=== PATIENT | female | born 1930 | race Caucasian/White ===

== ENCOUNTER 2016-12-06 23:57 | Inpatient (IN) | payer OTHER ==
[~2016-12-06] VITALS: Ht 149.9 cm; Wt 52.3 kg
[~2016-12-06 23:57] MED LIST: ACTONEL35 MG PO; ALTOPREV20 MG PO; AMOX TR-K CLV1 EAC4 PO; ASPIR-LOW81 MG PO; ATORVASTATIN CA40 MG PO; CALCIUM 600 +1 EAC9 PO; CLORPRES 0.1-11 EACH PO; LEVAQUIN500 MG PO; LISINOPRIL-HCT1 EACH PO; LISINOPRIL2.5 MG PO; LOPRESSOR25 MG PO; MULTIPLE VITAM1 EACH PO; NON-ASPIRIN EX500 MG PO; OS-CAL 500+D T1 EAC1 PO; PREDNISONE20 MG PO; TRAMADOL HCL50 MG PO; VITAMIN C1000 MG PO; VITAMIN D2000 UNIT PO
[2016-12-07 01:25] LABS: HEMATOCRIT 41.5 % (36.0-46.0); MCH 30.8 PG (29.0-34.0); MCHC 32.8 G/DL (30.0-36.0); MCV 93.9 FL (83-99); MEAN PLAT.VOLUME 10.1 uM^3 (9.5-12.4); PLATELET COUNT 231 K/uL (156-360); RBC DIS.WIDTH-CV 13.1 % (11.8-14.6); RBC DIS.WIDTH-SD 45.1 % (39-53); RED BLOOD COUNT 4.42 M/uL (3.80-5.20); WHITE BLOOD COUNT 7.5 K/uL (4.1-10.2)
[2016-12-07 01:35] LABS: CHLORIDE 106 mEq/L (99-109); POTASSIUM 3.4 mEq/L (3.7-5.4); SODIUM 142 mEq/L (136-147)
[2016-12-07 01:38] LABS: GLUCOSE 109 mg/dL (70-99)
[2016-12-07 01:39] LABS: ANION GAP 11 MEQ/L (2-14)
[2016-12-07 01:40] LABS: TOTAL BILIRUBIN 0.5 mg/dL (0.0-1.0)
[2016-12-07 01:41] LABS: ALKALINE PHOSPHATASE 64 IU/L (3-129); GFR ESTIMATE (CALCULATED) > 59 mL/min/
[2016-12-07 01:42] LABS: UREA NITROGEN (BUN) 12 mg/dL (9-23)
[2016-12-07 03:00] LABS: ADD MIUA? YES; BILIRUBIN NEGATIVE; BLOOD NEGATIVE; COLOR YELLOW ((YELLOW)); GLUCOSE (STRIP) NEGATIVE; KETONES NEGATIVE; LEUKOCYTES TRACE; NITRITE NEGATIVE; PROTEIN (STRIP) NEGATIVE; SPECIFIC GRAVITY 1.016 (1.000-1.030)
[2016-12-07 03:03] LABS: BACTERIA NONE SEEN /HPF; EPITHELIAL CELLS NONE SEEN /HPF; MUCUS TRACE /LPF; RED BLOOD CELLS 0-5 /HPF (0-5); UCUL ADDED? NO; WHITE BLOOD CELLS 0-5 /HPF (0-5)
[2016-12-07 10:31] LABS: TROP-I INTERPRETATION NEGATIVE; TROPONIN-I 0.02 ng/mL (0.0-0.30)
[2016-12-07 12:20] VITALS: BP 178/92
[2016-12-07 12:22] VITALS: BP 178/92
[2016-12-07 16:49] VITALS: BP 132/61
[2016-12-07 18:15] LABS: TROP-I INTERPRETATION NEGATIVE; TROPONIN-I 0.02 ng/mL (0.0-0.30)
[2016-12-07 20:30] VITALS: BP 162/74
[2016-12-07] MEDS ORDERED: ASPIRIN81 M2 PO (20:32)
[2016-12-07] MEDS ORDERED: AMLODIPINE BESYL5 MG PO (20:38)
[2016-12-07] MEDS ORDERED: PRESERVISION T1 EACH PO (20:40)
[2016-12-07] MEDS ORDERED: E-CREAM57 GM TP (20:40)
[2016-12-07] MEDS ORDERED: VITAMIN B COMP1 EACH PO (20:41)
[2016-12-07] MEDS ORDERED: THERA TEARS30 ML BOTH EYES (20:44)
[2016-12-07] MEDS ORDERED: MECLIZINE HCL25 MG PO (20:44)
[2016-12-08] VITALS (7 sets, daily range): BP systolic 128–164; BP diastolic 67–75
[2016-12-08 05:33] LABS: EOSINOPHIL (%) 0.2 % (0-5); HEMATOCRIT 37.2 % (36.0-46.0); IMMATURE GRANULOCYTE (%) 0.4 % (0.0-0.7); INSTRUMENT ABS NEUTROPHIL CT 7.4 K/uL; MCHC 33.3 G/DL (30.0-36.0); MCV 95.9 FL (83-99); MEAN PLAT.VOLUME 10.4 uM^3 (9.5-12.4); MONOCYTE (%) 11.6 % (3-12); MONOCYTE COUNT 1.1 K/uL (0-0.8); NEUTROPHIL (%) 77.4 % (45-76); NEUTROPHIL COUNT 7.4 K/uL (1.8-6.4); PLATELET COUNT 203 K/uL (156-360); RBC DIS.WIDTH-CV 13.4 % (11.8-14.6); RBC DIS.WIDTH-SD 47.4 % (39-53); RED BLOOD COUNT 3.88 M/uL (3.80-5.20); WHITE BLOOD COUNT 9.6 K/uL (4.1-10.2)
[2016-12-08 05:50] LABS: ALKALINE PHOSPHATASE 41 IU/L (3-129); ANION GAP 6 MEQ/L (2-14); CHLORIDE 103 MEQ/L (99-109); GFR ESTIMATE (CALCULATED) > 59 mL/min/; GLUCOSE 129 mg/dL (70-99); MAGNESIUM 1.5 mg/dl (1.3-2.7); POTASSIUM 3.8 MEQ/L (3.7-5.4); SAMPLE HEMOLYSIS CHECK 0; SAMPLE ICTERIC CHECK 0; SAMPLE LIPEMIA CHECK 0; SODIUM 137 MEQ/L (136-147); TOTAL BILIRUBIN 1.1 MG/DL (0.0-1.0); UREA NITROGEN (BUN) 9 mg/dL (9-23)
[2016-12-08 11:06] LABS: DIRECT BILIRUBIN 0.2 mg/dL (0.0-0.3)
[2016-12-09 02:57] VITALS: BP 160/76
[2016-12-09 05:36] LABS: EOSINOPHIL (%) 0.6 % (0-5); EOSINOPHIL COUNT 0.1 K/uL (0-0.3); HEMATOCRIT 37.5 % (36.0-46.0); IMMATURE GRANULOCYTE (%) 0.2 % (0.0-0.7); INSTRUMENT ABS NEUTROPHIL CT 7.3 K/uL; MCH 30.5 PG (29.0-34.0); MCV 95.2 FL (83-99); MEAN PLAT.VOLUME 10.7 uM^3 (9.5-12.4); MONOCYTE COUNT 1.5 K/uL (0-0.8); NEUTROPHIL (%) 73.7 % (45-76); NEUTROPHIL COUNT 7.3 K/uL (1.8-6.4); PLATELET COUNT 170 K/uL (156-360); RBC DIS.WIDTH-CV 13.2 % (11.8-14.6); RBC DIS.WIDTH-SD 46.6 % (39-53); RED BLOOD COUNT 3.94 M/uL (3.80-5.20); WHITE BLOOD COUNT 9.9 K/uL (4.1-10.2)
[2016-12-09 06:33] LABS: ANION GAP 7 MEQ/L (2-14); CHLORIDE 104 MEQ/L (99-109); GFR ESTIMATE (CALCULATED) > 59 mL/min/; GLUCOSE 99 mg/dL (70-99); MAGNESIUM 1.6 mg/dl (1.3-2.7); SAMPLE HEMOLYSIS CHECK 0; SAMPLE ICTERIC CHECK 0; SAMPLE LIPEMIA CHECK 0; SODIUM 139 MEQ/L (136-147); UREA NITROGEN (BUN) 10 mg/dL (9-23)
[2016-12-09 08:18] VITALS: BP 127/62
[2016-12-09 11:03] VITALS: BP 139/68
[2016-12-09 17:18] VITALS: BP 131/62
[2016-12-09 20:12] VITALS: BP 125/68
[2016-12-09 23:40] VITALS: BP 148/70
[2016-12-10 04:03] VITALS: BP 134/60
[2016-12-10 08:25] VITALS: BP 153/85
[2016-12-10 11:41] VITALS: BP 142/73
== END 2016-12-10 13:57 | disposition home or self-care (01) | DRG 352 ==
LOC: EME 23:57 → SDC 12-07 06:07 → 2SOUTH 12-07 09:32 → 4EAST 12-07 09:32 → ENRESERV 12-07 09:33 → 4EAST 12-07 11:55 → ENRESERV 12-09 14:31 → 3EAST 12-09 17:13
PROVIDERS: Physician Assistant; Surgery
DX: K43.6 Other and unspecified ventral hernia with obstruction, without gangrene (principal); K40.90 Unilateral inguinal hernia, without obstruction or gangrene, not specified as recurrent; K44.9 Diaphragmatic hernia without obstruction or gangrene; I10 Essential (primary) hypertension; M81.0 Age-related osteoporosis without current pathological fracture; M40.209 Unspecified kyphosis, site unspecified; H35.30 Unspecified macular degeneration; J44.9 Chronic obstructive pulmonary disease, unspecified; Z79.82 Long term (current) use of aspirin; Z88.2 Allergy status to sulfonamides; Z88.1 Allergy status to other antibiotic agents; I25.2 Old myocardial infarction; Z87.891 Personal history of nicotine dependence
CPT/HCPCS: 71010; 74177; 80048; 80053; 81003; 82248; 83735; 84100; 84484; 85025; 85027; 93005; 94640; 94667; 94668; 94799; 97530 GO; 97530 GP; 99202; 99281; 99285; C1781; J0330; J1170; J1335; J1650; J2270; J2405; J2710; J3010; J7040

== ENCOUNTER 2017-04-02 13:37 | Emergency (ER) | payer OTHER ==
[~2017-04-02] VITALS: Ht 149.9 cm; Wt 36.2 kg
[~2017-04-02 13:37] MED LIST changes: +AMLODIPINE BESYL5 MG PO; +ASPIRIN81 M2 PO; +E-CREAM57 GM TP; +MECLIZINE HCL25 MG PO; +PRESERVISION T1 EACH PO; +THERA TEARS30 ML BOTH EYES; +VITAMIN B COMP1 EACH PO
[2017-04-02 15:00] LABS: BASOPHIL (%) 0.1 % (0-1); EOSINOPHIL (%) 0 % (0-5); HEMATOCRIT 39.5 % (36.0-46.0); HEMOGLOBIN 13.2 G/DL (11.9-15.5); IMMATURE GRANULOCYTE (%) 0.7 % (0.0-0.7); LYMPHOCYTE (%) 3.5 % (15-42); LYMPHOCYTE COUNT 0.5 K/uL (1.0-2.8); MCH 31.2 PG (29.0-34.0); MCHC 33.4 G/DL (30.0-36.0); MCV 93.4 FL (83-99); MONOCYTE (%) 9.6 % (3-12); MONOCYTE COUNT 1.3 K/uL (0-0.8); NEUTROPHIL (%) 86.1 % (45-76); NEUTROPHIL COUNT 11.9 K/uL (1.8-6.4); PLATELET COUNT 189 K/uL (156-360); RBC DIS.WIDTH-CV 13.3 % (11.8-14.6); RBC DIS.WIDTH-SD 44.9 % (39-53); RED BLOOD COUNT 4.23 M/uL (3.80-5.20); WHITE BLOOD COUNT 13.9 K/uL (4.1-10.2)
[2017-04-02 15:47] LABS: CHLORIDE 102 MEQ/L (99-109); POTASSIUM 3.8 MEQ/L (3.7-5.4); SODIUM 136 MEQ/L (136-147)
[2017-04-02 15:52] LABS: CREATININE 0.5 MG/DL (0.6-1.3); GFR ESTIMATE (CALCULATED) > 59 mL/min/; GLUCOSE 148 mg/dL (70-99); UREA NITROGEN (BUN) 25 mg/dL (9-23)
[2017-04-02] MEDS ORDERED: TYLENOL WITH C1 EACH PO (17:51)
[2017-04-02 19:17] VITALS: BP 136/90
== END 2017-04-02 19:18 | disposition home or self-care (01) ==
LOC: EME 13:37
PROVIDERS: Emergency Medicine
DX: S42.411A Displaced simple supracondylar fracture without intercondylar fracture of right humerus, initial encounter for closed fracture (principal); S22.31XA Fracture of one rib, right side, initial encounter for closed fracture; W18.30XA Fall on same level, unspecified, initial encounter; Y93.E1 Activity, personal bathing and showering; Y92.002 Bathroom of unspecified non-institutional (private) residence as the place of occurrence of the external cause; Z23 Encounter for immunization; S80.212A Abrasion, left knee, initial encounter; S80.211A Abrasion, right knee, initial encounter; M81.0 Age-related osteoporosis without current pathological fracture; I10 Essential (primary) hypertension; I25.2 Old myocardial infarction; Z79.82 Long term (current) use of aspirin; J44.9 Chronic obstructive pulmonary disease, unspecified; Z88.2 Allergy status to sulfonamides; Z88.1 Allergy status to other antibiotic agents
CPT/HCPCS: 71101; 73090; 73521; 73564; 73590; 73630; 80048; 85025; 99281; 99284; J2405; J3010

== ENCOUNTER 2017-04-18 17:30 | Inpatient (IN) | payer OTHER ==
[~2017-04-18] VITALS: Ht 144.8 cm; Wt 50.0 kg
[~2017-04-18 17:30] MED LIST changes: +NATURE'S TEARS15 M1 BOTH EYES; -THERA TEARS30 ML BOTH EYES; +TYLENOL WITH C1 EACH PO
[2017-04-18 19:43] LABS: BASOPHIL (%) 0.3 % (0-1); BASOPHIL COUNT 0.1 K/uL (0-0.1); EOSINOPHIL (%) 0.2 % (0-5); HEMATOCRIT 40.5 % (36.0-46.0); HEMOGLOBIN 13.2 G/DL (11.9-15.5); IMMATURE GRANULOCYTE (%) 0.8 % (0.0-0.7); LYMPHOCYTE (%) 5.1 % (15-42); LYMPHOCYTE COUNT 0.9 K/uL (1.0-2.8); MCH 30.9 PG (29.0-34.0); MCHC 32.6 G/DL (30.0-36.0); MCV 94.8 FL (83-99); MONOCYTE (%) 11.9 % (3-12); MONOCYTE COUNT 2.2 K/uL (0-0.8); NEUTROPHIL (%) 81.7 % (45-76); NEUTROPHIL COUNT 14.8 K/uL (1.8-6.4); RBC DIS.WIDTH-CV 13.9 % (11.8-14.6); RBC DIS.WIDTH-SD 47.8 % (39-53); RED BLOOD COUNT 4.27 M/uL (3.80-5.20); WHITE BLOOD COUNT 18.1 K/uL (4.1-10.2)
[2017-04-18 19:46] LABS: CARBON DIOXIDE (BICARBONATE) 30.5 MEQ/L (20-31)
[2017-04-18 19:49] LABS: PLATELET COUNT 358 K/uL (156-360)
[2017-04-18 19:51] LABS: INTER. NORMALIZED RATIO 1.1
[2017-04-18 19:53] LABS: CHLORIDE 104 mEq/L (99-109); POTASSIUM 4.3 mEq/L (3.7-5.4); SODIUM 138 mEq/L (136-147)
[2017-04-18 19:55] LABS: GLUCOSE 130 mg/dL (70-99)
[2017-04-18] MEDS ORDERED: LOPRESSOR25 MG PO (19:57)
[2017-04-18] MEDS ORDERED: COLACE100 MG PO (19:57)
[2017-04-18] MEDS ORDERED: NATURAL LUTEIN20 MG PO (19:58)
[2017-04-18 19:59] LABS: CREATININE 0.6 mg/dL (0.6-1.3); GFR ESTIMATE (CALCULATED) > 59 mL/min/; UREA NITROGEN (BUN) 26 mg/dL (9-23)
[2017-04-18 20:01] LABS: CREATINE KINASE 40 IU/L (1-294)
[2017-04-18 20:04] LABS: TROP-I INTERPRETATION NEGATIVE; TROPONIN-I < 0.01 ng/mL (0.0-0.30)
[2017-04-18 23:41] VITALS: BP 131/63
[2017-04-19] VITALS (7 sets, daily range): BP systolic 116–142; BP diastolic 57–71
[2017-04-19 05:38] LABS: APPEARANCE SL.HAZY ((CLEAR)); BILIRUBIN NEGATIVE; BLOOD NEGATIVE; COLOR AMBER ((YELLOW)); GLUCOSE (STRIP) NEGATIVE; KETONES NEGATIVE; LEUKOCYTES TRACE; NITRITE NEGATIVE; PROTEIN (STRIP) NEGATIVE; SPECIFIC GRAVITY 1.029 (1.000-1.030)
[2017-04-19 05:42] LABS: BACTERIA RARE /HPF; EPITHELIAL CELLS RARE /HPF; MUCUS 1+ /LPF; UCUL ADDED? YES
[2017-04-19 06:03] LABS: HEMATOCRIT 37.7 % (36.0-46.0); MCH 30.9 PG (29.0-34.0); MCHC 31.8 G/DL (30.0-36.0); MCV 97.2 FL (83-99); PLATELET COUNT 305 K/uL (156-360); RBC DIS.WIDTH-CV 14.1 % (11.8-14.6); RED BLOOD COUNT 3.88 M/uL (3.80-5.20); WHITE BLOOD COUNT 14.8 K/uL (4.1-10.2)
[2017-04-19 06:37] LABS: ALBUMIN 2.8 G/DL (3.2-4.8); ALKALINE PHOSPHATASE 174 IU/L (3-129); ALT (GPT) 12 IU/L (3-49); AST (GOT) 16 IU/L (2-34); CHLORIDE 108 MEQ/L (99-109); CREATININE 0.5 MG/DL (0.6-1.3); GFR ESTIMATE (CALCULATED) > 59 mL/min/; GLUCOSE 114 mg/dL (70-99); POTASSIUM 4.2 MEQ/L (3.7-5.4); SODIUM 141 MEQ/L (136-147); TOTAL BILIRUBIN 0.9 MG/DL (0.0-1.0); TOTAL PROTEIN 5.3 G/DL (6.4-8.3); UREA NITROGEN (BUN) 25 mg/dL (9-23)
[2017-04-19 17:57] LABS: BICARBONATE 24.3 mEq/L (22-26); CARBOXY HGB 2.5 % (0-5); METHEMOGLOBIN 1.6 % (0-1.5); PCO2 42 mm Hg (35-45); PO2 206 mm Hg (80-100); SITE LB; pH 7.37 (7.35-7.45)
[2017-04-19 17:58] LABS: DEVICE NRBM; FI02 100 %; O2 FLOW 15 L/MIN; TOTAL RESP RATE 22 resp/min
[2017-04-19 18:44] LABS: TROP-I INTERPRETATION NEGATIVE; TROPONIN-I < 0.01 ng/mL (0.0-0.30)
[2017-04-20 05:20] VITALS: BP 113/55
[2017-04-20 06:10] LABS: BASOPHIL (%) 0.3 % (0-1); EOSINOPHIL (%) 1.4 % (0-5); EOSINOPHIL COUNT 0.2 K/uL (0-0.3); HEMATOCRIT 33.1 % (36.0-46.0); HEMOGLOBIN 10.5 G/DL (11.9-15.5); IMMATURE GRANULOCYTE (%) 0.6 % (0.0-0.7); LYMPHOCYTE (%) 9.3 % (15-42); LYMPHOCYTE COUNT 1.1 K/uL (1.0-2.8); MCH 29.9 PG (29.0-34.0); MCHC 31.7 G/DL (30.0-36.0); MCV 94.3 FL (83-99); MONOCYTE COUNT 1.6 K/uL (0-0.8); NEUTROPHIL (%) 74.4 % (45-76); NEUTROPHIL COUNT 8.8 K/uL (1.8-6.4); PLATELET COUNT 288 K/uL (156-360); RBC DIS.WIDTH-CV 13.7 % (11.8-14.6); RBC DIS.WIDTH-SD 46.8 % (39-53); RED BLOOD COUNT 3.51 M/uL (3.80-5.20); WHITE BLOOD COUNT 11.8 K/uL (4.1-10.2)
[2017-04-20 06:40] LABS: ALBUMIN 2.4 G/DL (3.2-4.8); ALKALINE PHOSPHATASE 132 IU/L (3-129); ALT (GPT) 10 IU/L (3-49); AST (GOT) 15 IU/L (2-34); CHLORIDE 106 MEQ/L (99-109); CREATININE 0.5 MG/DL (0.6-1.3); GFR ESTIMATE (CALCULATED) > 59 mL/min/; GLUCOSE 99 mg/dL (70-99); SODIUM 142 MEQ/L (136-147); TOTAL PROTEIN 4.8 G/DL (6.4-8.3); UREA NITROGEN (BUN) 19 mg/dL (9-23)
[2017-04-20 06:41] LABS: POTASSIUM 3.3 MEQ/L (3.7-5.4); TOTAL BILIRUBIN 0.7 MG/DL (0.0-1.0)
[2017-04-20 07:24] VITALS: BP 112/59
[2017-04-20 11:16] VITALS: BP 140/64
[2017-04-20 15:40] VITALS: BP 116/62
[2017-04-20 19:33] VITALS: BP 119/58
[2017-04-20 23:33] VITALS: BP 107/57
[2017-04-21 03:42] VITALS: BP 112/57
[2017-04-21 04:39] LABS: BASOPHIL (%) 0.3 % (0-1); EOSINOPHIL (%) 1.3 % (0-5); EOSINOPHIL COUNT 0.2 K/uL (0-0.3); HEMATOCRIT 32.4 % (36.0-46.0); HEMOGLOBIN 10.8 G/DL (11.9-15.5); IMMATURE GRANULOCYTE (%) 0.6 % (0.0-0.7); LYMPHOCYTE (%) 6.9 % (15-42); LYMPHOCYTE COUNT 0.9 K/uL (1.0-2.8); MCH 31.3 PG (29.0-34.0); MCHC 33.3 G/DL (30.0-36.0); MCV 93.9 FL (83-99); MONOCYTE (%) 12.9 % (3-12); MONOCYTE COUNT 1.7 K/uL (0-0.8); PLATELET COUNT 303 K/uL (156-360); RBC DIS.WIDTH-CV 13.5 % (11.8-14.6); RBC DIS.WIDTH-SD 46.5 % (39-53); RED BLOOD COUNT 3.45 M/uL (3.80-5.20); WHITE BLOOD COUNT 12.9 K/uL (4.1-10.2)
[2017-04-21 04:52] LABS: ALBUMIN 2.6 g/dL (3.2-4.8)
[2017-04-21 04:53] LABS: CHLORIDE 108 mEq/L (99-109); POTASSIUM 3.6 mEq/L (3.7-5.4); SODIUM 140 mEq/L (136-147)
[2017-04-21 04:55] LABS: GLUCOSE 121 mg/dL (70-99); TOTAL PROTEIN 4.8 g/dL (6.4-8.3)
[2017-04-21 04:57] LABS: TOTAL BILIRUBIN 0.7 mg/dL (0.0-1.0)
[2017-04-21 04:58] LABS: ALKALINE PHOSPHATASE 170 IU/L (3-129)
[2017-04-21 04:59] LABS: CREATININE 0.6 mg/dL (0.6-1.3); GFR ESTIMATE (CALCULATED) > 59 mL/min/
[2017-04-21 05:00] LABS: AST (GOT) 20 IU/L (2-34); UREA NITROGEN (BUN) 22 mg/dL (9-23)
[2017-04-21 05:01] LABS: ALT (GPT) 12 IU/L (3-49)
[2017-04-21 07:59] LABS: MAGNESIUM 1.7 mg/dL (1.3-2.7)
[2017-04-21 08:59] VITALS: BP 113/60
[2017-04-21 12:07] VITALS: BP 150/69
[2017-04-21 15:46] VITALS: BP 128/60
[2017-04-21 19:28] VITALS: BP 113/59
[2017-04-21 23:57] VITALS: BP 134/63
[2017-04-22 04:16] VITALS: BP 116/59
[2017-04-22 05:50] LABS: BASOPHIL (%) 0.5 % (0-1); BASOPHIL COUNT 0.1 K/uL (0-0.1); EOSINOPHIL (%) 2.2 % (0-5); EOSINOPHIL COUNT 0.2 K/uL (0-0.3); HEMATOCRIT 34.4 % (36.0-46.0); IMMATURE GRANULOCYTE (%) 0.6 % (0.0-0.7); LYMPHOCYTE (%) 8.9 % (15-42); MCH 30.8 PG (29.0-34.0); MCV 96.4 FL (83-99); MONOCYTE (%) 13.7 % (3-12); MONOCYTE COUNT 1.5 K/uL (0-0.8); NEUTROPHIL (%) 74.1 % (45-76); PLATELET COUNT 316 K/uL (156-360); RBC DIS.WIDTH-CV 13.6 % (11.8-14.6); RBC DIS.WIDTH-SD 48.4 % (39-53); RED BLOOD COUNT 3.57 M/uL (3.80-5.20); WHITE BLOOD COUNT 10.8 K/uL (4.1-10.2)
[2017-04-22 06:17] LABS: ALBUMIN 2.3 G/DL (3.2-4.8); ALKALINE PHOSPHATASE 128 IU/L (3-129); ALT (GPT) 11 IU/L (3-49); AST (GOT) 19 IU/L (2-34); CHLORIDE 107 MEQ/L (99-109); CREATININE 0.4 MG/DL (0.6-1.3); GFR ESTIMATE (CALCULATED) > 59 mL/min/; GLUCOSE 113 mg/dL (70-99); POTASSIUM 4.1 MEQ/L (3.7-5.4); SODIUM 142 MEQ/L (136-147); TOTAL BILIRUBIN 0.6 MG/DL (0.0-1.0); TOTAL PROTEIN 4.7 G/DL (6.4-8.3); UREA NITROGEN (BUN) 18 mg/dL (9-23)
[2017-04-22 08:37] VITALS: BP 124/61
[2017-04-22 11:37] VITALS: BP 126/65
[2017-04-22 16:30] VITALS: BP 129/61
[2017-04-22 19:39] VITALS: BP 128/57
[2017-04-22 23:49] VITALS: BP 134/65
[2017-04-23] VITALS (7 sets, daily range): BP systolic 112–140; BP diastolic 55–72
[2017-04-24 05:51] VITALS: BP 123/60
[2017-04-24 08:31] VITALS: BP 139/63
[2017-04-24] MEDS ORDERED: SPIRIVA RESPIMAT4 GM IH (10:36)
[2017-04-24] MEDS ORDERED: LOPRESSOR25 MG PO (10:36)
[2017-04-24] MEDS ORDERED: ELIQUIS5 MG PO (10:37)
[2017-04-24] MEDS ORDERED: DULERA 100 MCG/13 GM IH (10:38)
[2017-04-24] MEDS ORDERED: POLYETHYLENE GL17 GM PO (10:38)
[2017-04-24] MEDS ORDERED: SANTYL30 GM TP (10:40)
[2017-04-24] MEDS ORDERED: TRAMADOL HCL50 MG PO ×2 (10:40→10:41)
[2017-04-24 11:36] VITALS: BP 137/82
== END 2017-04-24 14:33 | DRG 299 ==
LOC: EME 17:30 → 3EAST 21:03 → EDOF 21:03 → ENRESERV 21:05 → 3EAST 23:37
PROVIDERS: Emergency Medicine; Hospitalist; Internal Medicine
DX: I82.431 Acute embolism and thrombosis of right popliteal vein (principal); I82.4Z1 Acute embolism and thrombosis of unspecified deep veins of right distal lower extremity; I82.412 Acute embolism and thrombosis of left femoral vein; I82.4Z2 Acute embolism and thrombosis of unspecified deep veins of left distal lower extremity; I26.99 Other pulmonary embolism without acute cor pulmonale; J96.01 Acute respiratory failure with hypoxia; L89.150 Pressure ulcer of sacral region, unstageable; L89.320 Pressure ulcer of left buttock, unstageable; L89.310 Pressure ulcer of right buttock, unstageable; L89.101 Pressure ulcer of unspecified part of back, stage 1; R64 Cachexia; Z68.23 Body mass index [BMI] 23.0-23.9, adult; S42.411D Displaced simple supracondylar fracture without intercondylar fracture of right humerus, subsequent encounter for fracture with routine healing; S39.94XA Unspecified injury of external genitals, initial encounter; X58.XXXA Exposure to other specified factors, initial encounter; D72.829 Elevated white blood cell count, unspecified; Z66 Do not resuscitate; J44.9 Chronic obstructive pulmonary disease, unspecified; I48.91 Unspecified atrial fibrillation; I10 Essential (primary) hypertension; I42.9 Cardiomyopathy, unspecified; R32 Unspecified urinary incontinence; I25.10 Atherosclerotic heart disease of native coronary artery without angina pectoris; M81.0 Age-related osteoporosis without current pathological fracture; F03.90 Unspecified dementia, unspecified severity, without behavioral disturbance, psychotic disturbance, mood disturbance, and anxiety; F17.200 Nicotine dependence, unspecified, uncomplicated; R60.0 Localized edema; I25.2 Old myocardial infarction; Z82.49 Family history of ischemic heart disease and other diseases of the circulatory system; Z98.61 Coronary angioplasty status; Z74.01 Bed confinement status
CPT/HCPCS: 36600; 71045; 71046; 71275; 80048; 80053; 80202; 81003; 82550; 82803; 82948; 83605; 83735; 83880; 84484; 85025; 85027; 85610; 85730; 87040; 87070; 87075; 87086; 87205; 92526 GN; 92610 GN; 93005; 93970; 94010; 94640; 94640 76; 94760; 94799; 97530 GP; 99202; 99281; 99285; A6214; A6260; J1650; J1940; J2543; J3370; J7030; J7050; S0073

== ENCOUNTER 2017-05-06 20:34 | Emergency (ER) | payer OTHER ==
[~2017-05-06] VITALS: Ht 149.9 cm; Wt 56.7 kg
[~2017-05-06 20:34] MED LIST changes: +COLACE100 MG PO; +DULERA 100 MCG/13 GM IH; +ELIQUIS5 MG PO; +NATURAL LUTEIN20 MG PO; +POLYETHYLENE GL17 GM PO; +SANTYL30 GM TP; +SPIRIVA RESPIMAT4 GM IH
[2017-05-06 21:41] LABS: APPEARANCE CLOUDY ((CLEAR)); BILIRUBIN NEGATIVE; BLOOD LARGE; COLOR DK YELLOW ((YELLOW)); GLUCOSE (STRIP) NEGATIVE; KETONES NEGATIVE; LEUKOCYTES NEGATIVE; NITRITE NEGATIVE; PROTEIN (STRIP) 100; SPECIFIC GRAVITY 1.023 (1.000-1.030); UROBILINOGEN 0.2 MG/DL (0.2-1.0)
[2017-05-06 22:05] LABS: HEMATOCRIT 35.9 % (36.0-46.0); HEMOGLOBIN 11.7 G/DL (11.9-15.5); MCH 30.6 PG (29.0-34.0); MCHC 32.6 G/DL (30.0-36.0); PLATELET COUNT 344 K/uL (156-360); RBC DIS.WIDTH-CV 15.4 % (11.8-14.6); RBC DIS.WIDTH-SD 52.5 % (39-53); RED BLOOD COUNT 3.82 M/uL (3.80-5.20); WHITE BLOOD COUNT 9.2 K/uL (4.1-10.2)
[2017-05-06 22:16] LABS: ALBUMIN 2.8 g/dL (3.2-4.8); CHLORIDE 104 mEq/L (99-109); POTASSIUM 3.7 mEq/L (3.7-5.4); SODIUM 139 mEq/L (136-147)
[2017-05-06 22:19] LABS: GLUCOSE 130 mg/dL (70-99); TOTAL PROTEIN 5.5 g/dL (6.4-8.3)
[2017-05-06 22:21] LABS: TOTAL BILIRUBIN 0.4 mg/dL (0.0-1.0)
[2017-05-06 22:22] LABS: ALKALINE PHOSPHATASE 158 IU/L (3-129); CREATININE 0.6 mg/dL (0.6-1.3); GFR ESTIMATE (CALCULATED) > 59 mL/min/
[2017-05-06 22:23] LABS: UREA NITROGEN (BUN) 18 mg/dL (9-23)
[2017-05-06 22:24] LABS: AST (GOT) 21 IU/L (2-34)
[2017-05-06 22:25] LABS: ALT (GPT) 13 IU/L (3-49)
[2017-05-06 22:43] LABS: RED BLOOD CELLS TNTC /HPF (0-5); UCUL ADDED? YES
[2017-05-07] MEDS ORDERED: CIPRO500 MG PO (00:50)
[2017-05-07 03:01] VITALS: BP 121/68
== END 2017-05-07 03:03 ==
LOC: EME 20:34
PROVIDERS: Emergency Medicine
DX: R31.9 Hematuria, unspecified (principal); I25.2 Old myocardial infarction; I10 Essential (primary) hypertension; M81.0 Age-related osteoporosis without current pathological fracture; Z79.82 Long term (current) use of aspirin; Z88.1 Allergy status to other antibiotic agents; Z88.6 Allergy status to analgesic agent; Z88.2 Allergy status to sulfonamides
CPT/HCPCS: 74177; 80053; 81003; 85027; 87077; 87086 GA; 87186; 99281; 99285; J7030